=== PATIENT | male | born 1955 | race Hispanic/Latino ===

== ENCOUNTER 2018-06-23 11:16 | Outpatient (CLI) | payer MEDICARE, MEDICAID ==
[2018-06-23 12:32] LABS: Hemoglobin A1c 7.3 % (4.0-6.0)
--- NOTE | 2018-06-23 13:47 | RAD ---
RADIOGRAPH CHEST 2 VIEWS: Date: 06-23-18 Time: 11:56 a.m. HISTORY: 63-year-old male with dyspnea and asbestos exposure. COMPARISON: 12-19-14 FINDINGS: Transverse diameter of the cardiac size is at the upper limits of normal on the frontal view. Evidenc e of previous CABG. Chronically widened mediastinum. Diffusely prominent interstitial markings, chron ic. No pleural effusion, consolidation, pulmonary edema, or pneumothorax. Other than right glenohumer al joint replacement hardware, there has been no significant interval change since the prior study. N o definitive evidence of calcified pleural plaques. IMPRESSION: 1. Chronic, mildly prominent interstitial markings. 2. Evidence of previous coronary artery bypass graft surgery is evidence for coronary atherosclerotic disease. 3. No acute findings. ARGENIS [] POS: JESS
== END 2018-06-23 11:17 | disposition home or self-care (01) ==
LOC: RAD 11:16
PROVIDERS: ATTEND Family Medicine
DX: R06.02 Shortness of breath (principal); E11.65 Type 2 diabetes mellitus with hyperglycemia; I25.10 Atherosclerotic heart disease of native coronary artery without angina pectoris; R91.8 Other nonspecific abnormal finding of lung field; Z95.1 Presence of aortocoronary bypass graft
CPT/HCPCS: 71046; 83036

== ENCOUNTER 2018-07-21 13:06 | Outpatient (CLI) | payer MEDICARE, MEDICAID ==
[2018-07-21 14:56] LABS: #Basophils 0.1 thou/uL (0.0-0.2); #Eosinphils 0.2 thou/uL (0.0-0.7); #Lymphocytes 1.8 thou/uL (1.20-3.40); #Monocytes 0.7 thou/uL (0.11-0.59); #Neutrophils 4.1 thou/uL (1.40-6.50); %Basophils 0.7 % (0.0-1.0); %Eosinophils 2.9 % (0.0-10.0); %Lymphocytes 26.7 % (21.0-51.0); %Monocytes 9.6 % (0.0-10.0); %Neutrophils 60.1 % (42.0-75.0); Hemoglobin 8.9 g/dL (14.0-18.0); Mean Corpuscular HGB CONC 30.7 g/dL (32.0-36.0); Mean Corpuscular Hemoglobin 25.2 pg (27.0-31.0); Mean Corpuscular Volume 81.9 fL (78.0-98.0); Mean Platelet Volume 8.1 fL (7.4-10.4); Platelet Count 183 thou/uL (130-400); RBC Distribution Width 18.3 % (11.5-14.5); Red Blood Cell (RBC) Count 3.53 mill/uL (4.70-6.10); White Blood Cell (WBC) Count 6.8 thou/uL (4.8-10.8)
[2018-07-21 15:11] LABS: ALT (SGPT) 10 U/L (8-55); AST (SGOT) 20 U/L (5-34); Albumin 4.2 g/dL (3.4-4.8); Alkaline Phosphatase 56 U/L (40-150); Anion Gap 13 mmol/L (10-20); BUN (Urea Nitrogen) 19 mg/dL (8.4-25.7); Bilirubin, Direct 0.2 mg/dL (0.1-0.3); Bilirubin, Total 0.4 mg/dL (0.2-1.2); Calc. Creatinine Clearance 0 mL/min (70-130); Calcium 9.5 mg/dL (7.8-10.44); Carbon Dioxide 29 mmol/L (23-31); Chloride 103 mmol/L (98-107); Estimated GFR-MDRD 54; Globulin 3.2 g/dL (2.4-3.5); Glucose 71 mg/dL (80-115); Potassium 3.4 mmol/L (3.5-5.1); Protein, Total 7.4 g/dL (5.8-8.1); Sodium 142 mmol/L (136-145)
--- NOTE | 2018-07-21 15:17 | RAD ---
CHEST TWO VIEWS: HISTORY: Asbestos exposure. Shortness of breath. COMPARISON: 06/23/2018 FINDINGS: Two views of the chest show a cardiomediastinal silhouette, which is at the upper limits of normal in size. The patient is status post sternotomy. Hardware is seen in the right humerus. Increased int erstitial lung markings are present. No change has occurred compared to the prior examination. IMPRESSION: Stable examination. POS: CARMELA
== END 2018-07-21 13:07 | disposition home or self-care (01) ==
LOC: LABBT 13:06
PROVIDERS: ATTEND Internal Medicine Cardiovascular Disease
DX: Z01.818 Encounter for other preprocedural examination (principal); R93.89 Abnormal findings on diagnostic imaging of other specified body structures
CPT/HCPCS: 71046; 80053; 80076; 85025; 93005; 93010

== ENCOUNTER 2018-07-30 06:02 | Day surgery (SDC) | payer MEDICARE, MEDICAID ==
[2018-07-21 13:35] VITALS: BMI 38.2
[2018-07-30] MEDS ORDERED: Heparin 10,000 UNITS/1 ML VIAL ONE (06:30)
[2018-07-30 06:35] LABS: #Eosinphils 0.3 thou/uL (0.0-0.7); #Lymphocytes 1.6 thou/uL (1.20-3.40); #Monocytes 0.7 thou/uL (0.11-0.59); #Neutrophils 5.3 thou/uL (1.40-6.50); %Basophils 0.6 % (0.0-1.0); %Eosinophils 3.4 % (0.0-10.0); %Lymphocytes 19.6 % (21.0-51.0); %Monocytes 9.4 % (0.0-10.0); %Neutrophils 67.2 % (42.0-75.0); Hemoglobin 9.2 g/dL (14.0-18.0); Mean Corpuscular HGB CONC 30.2 g/dL (32.0-36.0); Mean Corpuscular Hemoglobin 24.4 pg (27.0-31.0); Mean Corpuscular Volume 80.7 fL (78.0-98.0); Mean Platelet Volume 8.1 fL (7.4-10.4); Platelet Count 264 thou/uL (130-400); RBC Distribution Width 17.1 % (11.5-14.5); Red Blood Cell (RBC) Count 3.76 mill/uL (4.70-6.10); White Blood Cell (WBC) Count 7.9 thou/uL (4.8-10.8)
[2018-07-30 07:03] LABS: ALT (SGPT) 12 U/L (8-55); AST (SGOT) 23 U/L (5-34); Albumin 4.1 g/dL (3.4-4.8); Alkaline Phosphatase 59 U/L (40-150); Anion Gap 14 mmol/L (10-20); BUN (Urea Nitrogen) 23 mg/dL (8.4-25.7); Bilirubin, Total 0.5 mg/dL (0.2-1.2); Calc. Creatinine Clearance 92 mL/min (70-130); Calcium 9.5 mg/dL (7.8-10.44); Carbon Dioxide 26 mmol/L (23-31); Cardiac Risk 3.6 (Less than 4.5); Chloride 103 mmol/L (98-107); Cholesterol 135 mg/dl (< 200 Desired); Estimated GFR-MDRD 55; Globulin 3.7 g/dL (2.4-3.5); Glucose 154 mg/dL (80-115); HDL Cholesterol 37 mg/dL (>60 Neg Risk); LDL Cholesterol, Calculated 65 mg/dL; Potassium 3.9 mmol/L (3.5-5.1); Protein, Total 7.8 g/dL (5.8-8.1); Sodium 139 mmol/L (136-145); Triglycerides 163 mg/dL (Less than 150)
[2018-07-30] MEDS ORDERED: Midazolam HCl 2 mg/2 ml Vial ONE (07:30)
[2018-07-30] MEDS ORDERED: Fentanyl 100 MCG/2 ML VIAL ONE (07:30)
[2018-07-30] MEDS ORDERED: Iopamidol 370 76% 100 ML VIAL ONE (07:42)
[2018-07-30] MEDS ORDERED: Iopamidol 370 76% 50 ML VIAL FS ONE (07:42)
[2018-07-30] MEDS ORDERED: Protamine Sulfate 50 MG/5 ML VIAL ONE (08:24)
== END 2018-07-30 16:08 | disposition home or self-care (01) ==
LOC: CCL 06:02
PROVIDERS: ATTEND Internal Medicine Cardiovascular Disease
PROC: 4A023N7 Measurement of Cardiac Sampling and Pressure, Left Heart, Percutaneous Approach (ICD-10-PCS; principal; 2018-07-30)
PROC: B2111ZZ Fluoroscopy of Multiple Coronary Arteries using Low Osmolar Contrast (ICD-10-PCS; 2018-07-30)
PROC: B2181ZZ Fluoroscopy of Left Internal Mammary Bypass Graft using Low Osmolar Contrast (ICD-10-PCS; 2018-07-30)
PROC: B2131ZZ Fluoroscopy of Multiple Coronary Artery Bypass Grafts using Low Osmolar Contrast (ICD-10-PCS; 2018-07-30)
DX: I25.810 Atherosclerosis of coronary artery bypass graft(s) without angina pectoris (principal); I25.82 Chronic total occlusion of coronary artery; Z95.1 Presence of aortocoronary bypass graft; Z88.5 Allergy status to narcotic agent; Z88.8 Allergy status to other drugs, medicaments and biological substances; Z79.4 Long term (current) use of insulin; Z79.02 Long term (current) use of antithrombotics/antiplatelets; Z79.899 Other long term (current) drug therapy; Z95.5 Presence of coronary angioplasty implant and graft
CPT/HCPCS: 36416; 80053; 80061; 85025; 85347; 93459; 99152; 99153; C1769; J1644; J2250; J2720; J3010; Q9967

== ENCOUNTER 2018-08-20 08:40 | Inpatient (IN) | payer MEDICARE, MEDICAID ==
[2018-08-20 09:25] LABS: #Eosinphils 0.1 thou/uL (0.0-0.7); #Lymphocytes 1.2 thou/uL (1.20-3.40); #Monocytes 0.7 thou/uL (0.11-0.59); %Eosinophils 1.4 % (0.0-10.0); %Lymphocytes 11.5 % (21.0-51.0); %Monocytes 7.3 % (0.0-10.0); %Neutrophils 79.9 % (42.0-75.0); Hemoglobin 8.2 g/dL (14.0-18.0); Mean Corpuscular HGB CONC 28.5 g/dL (32.0-36.0); Mean Corpuscular Hemoglobin 23.9 pg (27.0-31.0); Mean Platelet Volume 7.9 fL (7.4-10.4); Platelet Count 240 thou/uL (130-400); RBC Distribution Width 18.3 % (11.5-14.5); Red Blood Cell (RBC) Count 3.41 mill/uL (4.70-6.10)
--- NOTE | 2018-08-20 09:39 | RAD ---
CHEST 1 VIEW: Date: 08/20/18 HISTORY: Dyspnea. COMPARISON: Radiograph dated 07/21/18. FINDINGS: Heart size is enlarged. Moderate edema. Large right and moderate left pleural effusion. No pneumothor ax. IMPRESSION: Findings suggestive of congestive heart failure. POS: [facility]
[2018-08-20 09:41] LABS: Band 5 % (5-11); Eosinophils 2 % (0-10); Hypochromia SLIGHT = 6-15 cells (100X) (0-5/hpf); Lymphocytes 10 % (21-51); MDiff Complete? YES; Monocytes 7 % (0-10); Neutrophil 76 % (42-75); Nucleated RBC 1 % (0); Platelet Morphology Comment Appears Adequate; Polychromasia MODERATE = 3-4 cells (100X) (0-2/hpf)
[2018-08-20 09:45] LABS: ALT (SGPT) 11 U/L (8-55); AST (SGOT) 23 U/L (5-34); Albumin 3.7 g/dL (3.4-4.8); Alkaline Phosphatase 69 U/L (40-150); Anion Gap 14 mmol/L (10-20); BUN (Urea Nitrogen) 16 mg/dL (8.4-25.7); Bilirubin, Total 0.5 mg/dL (0.2-1.2); Calc. Creatinine Clearance 0 mL/min (70-130); Carbon Dioxide 25 mmol/L (23-31); Chloride 106 mmol/L (98-107); Estimated GFR-MDRD 56; Globulin 3.6 g/dL (2.4-3.5); Glucose 91 mg/dL (80-115); Protein, Total 7.3 g/dL (5.8-8.1); Sodium 141 mmol/L (136-145)
[2018-08-20] MEDS ORDERED: Iopamidol 370 76% 100 ML VIAL ONE (09:47)
[2018-08-20 10:07] LABS: CKMB 2.6 ng/mL (0-6.6)
[2018-08-20] MEDS ORDERED: Furosemide 40 MG/4 ML VIAL ONE (10:20)
--- NOTE | 2018-08-20 10:53 | CT ---
CT PULMONARY ANGIOGRAM WITH IV CONTRAST AND 3D POSTPROCESSING: Date: 08/20/18 HISTORY: Shortness of breath. FINDINGS: There is good contrast opacification of the pulmonary arterial vasculature without filling defects to suggest pulmonary embolism. There are vascular calcifications without evidence of aneurysmal dilatation of the thoracic aorta. No pericardial effusion is seen. There are small bilateral pleural effusions, right larger than left. T here are scattered patchy ground-glass infiltrates in the lung parenchyma bilaterally, right greater than left. No pneumothoraces are seen. There is mediastinal lymphadenopathy. Degenerative changes are present in the spine. IMPRESSION: 1. No CT evidence of pulmonary embolism. 2. Mediastinal lymphadenopathy. 3. Bilateral small pleural effusions, right greater than left. 4. Ground-glass infiltrates. Further evaluation with bronchoscopy would be helpful. POS: [facility]
[2018-08-20] MEDS ORDERED: Enoxaparin Sodium 100 MG/ML SYRINGE ONE (10:58)
[2018-08-20] MEDS ORDERED: Loperamide HCl 2 MG CAP PO PRN (12:26)
[2018-08-20] MEDS ORDERED: Nitroglycerin 0.4 MG TAB (25 Tab Bottle) SL PRN (12:26)
[2018-08-20] MEDS ORDERED: diphenhydrAMINE 25 MG in Sodium Chloride 0.9% 50 ML IVPB PRN (12:29)
[2018-08-20] MEDS ORDERED: TICAGRELOR 90 MG TABLET PO SCH (12:30)
[2018-08-20] MEDS ORDERED: cefTRIAXone\\ROCEPHIN 1 GM in Sodium Chloride 0.9% 100 ML IVPB SCH (13:00)
[2018-08-20 13:03] LABS: Troponin I 0.169 ng/mL (< 0.028)
[2018-08-20] MEDS ORDERED: Azithromycin 500 MG in Sodium Chloride 0.9% 250 ML 250 ML IVPB SCH (14:00)
[2018-08-20] MEDS ORDERED: methylPREDNISolone Sod Succ/PF 125 MG/2 ML VIAL IVP SCH (14:00)
[2018-08-20] MEDS ORDERED: DOBUTamine 500 mg/250 ml 250 ML IVPB SCH (15:30)
[2018-08-20 15:59] LABS: Troponin I 0.158 ng/mL (< 0.028)
[2018-08-20] MEDS ORDERED: Acetaminophen 325 MG TAB PO PRN (16:19)
[2018-08-20] MEDS ORDERED: Ondansetron PF 4 MG/2 ML Vial IVP PRN (16:19)
[2018-08-20] MEDS ORDERED: Ondansetron ODT 4 MG TAB SL PRN (16:19)
[2018-08-20 16:35] VITALS: BMI 38.1
--- NOTE | 2018-08-20 18:57 | CON ---
DATE OF CONSULTATION: 08/20/2018 REASON FOR CONSULT: Respiratory failure. HISTORY OF PRESENT ILLNESS: The patient is a 63-year-old male with past medical history significant for horrendous coronary artery disease. He had a coronary artery bypass graft several years ago. Recently, he was having intermittent chest discomfort. He got re-cath. Three of his four grafts were down by his history. For the last week and a half, he has had increasing dyspnea that limits his activity, and for the last 4 or 5 days, he has had increasing orthopnea and paroxysmal nocturnal dyspnea. This is despite the fact that he is on CPAP therapy. He has not had any fevers. He did have a little bit of chills. He has not been coughing up any sputum with color. For last 2 or 3 days, he was bringing up frothy sputum. Then yesterday, he was brought up something that he describes as having a pinky to it. Today, it is converted over into a fuller to brown color, consistent with evolution of alveolar hemorrhages. He did have some chest pains 3 or 4 days ago. He also notes increasing lower extremity swelling and weight gain as well as abdominal swelling. He got a dose of Lasix. He put a liter fluid out. Blood pressures remain fantastic. PAST MEDICAL HISTORY: 1. Coronary artery disease. 2. Type 2 diabetes mellitus. 3. Hypertension. 4. Dyslipidemia. 5. Obstructive sleep apnea, on CPAP at 13 cm water pressure. 6. Morbid obesity. 7. Gastroesophageal reflux disease. 8. Gastroparesis. 9. Restless legs syndrome. 10. History of TIA. PAST SURGICAL HISTORY: 1. Percutaneous coronary intervention x3. 2. Coronary artery bypass graft x5 vessels. 3. Right hip surgery. 4. Bilateral total knee arthroplasty. SOCIAL HISTORY: Negative for current alcohol, tobacco, or illicit drug use. A 15- to [id number] history of smoking, but quit over 20 years ago. He has no exposure to chemicals, dust, asbestos, or tuberculosis. FAMILY HISTORY: Noncontributory. ALLERGIES: NITROGLYCERIN, MORPHINE, LEVAQUIN. MEDICATIONS: List of the patient's inpatient medications was reviewed. Multiple updates were made. REVIEW OF SYSTEMS: General, head, ears, eyes, nose, throat, cardiovascular, respiratory, GI, , musculoskeletal, neurologic, and skin are negative as mentioned in the HPI. PHYSICAL EXAMINATION: VITAL SIGNS: Afebrile, pulse 95, blood pressure 118/72, respirations 15, saturation 93% on 4 L nasal cannula. GENERAL: The patient is awake and alert. He is dyspneic. He is grunting while breathing. HEENT: Normocephalic and atraumatic. Sclerae are white. Conjunctivae are pink. Oral and nasal mucosa is moist without lesions. LUNGS: Excellent air entry. There is no prolonged expiratory phase. Extensive crackling is present throughout bilateral lung reynaga. There is no prolonged expiratory phase or wheezing present. HEART: Normal rate. Regular. ABDOMEN: Soft, nontender, nondistended. Bowel sounds are positive. MUSCULOSKELETAL: No cyanosis or clubbing. There is 1+ to 2+ pitting in the bilateral lower extremities. NEUROLOGIC: Grossly nonfocal. LABORATORY DATA: WBC 10.0 with a near normal differential. Hemoglobin 8.2, which is a little low for him, MCV 84, platelet 240,000. Band count is low. Basic metabolic profile and liver function studies are otherwise unremarkable. Creatinine just over baseline at 1.29. BNP is in historic high at 833. Troponins were recently uptrending, but are now heading back downward. IMAGING DATA: Chest x-ray demonstrates findings consistent with asymmetric pulmonary edema, bilateral pleural effusions, and cephalization all consistent with severe volume overload. CTA of the chest demonstrates ground-glass opacifications throughout bilateral lung reynaga and thickened interstitium. It is more predominantly displayed on the right compared to the left. He also has mediastinal lymphadenopathy, bilateral pleural effusions. All of these things are in keeping with severe volume overload, though additional investigation may be warranted if he does not respond to conservative therapy. ASSESSMENT: 1. Acute hypoxic respiratory failure. 2. Acute heart failure, type not specified presently. 3. Chronic kidney disease, stage 2. 4. Obstructive sleep apnea, on home CPAP at 14 cm H2O 70 minutes have been devoted to this patient in various activities. I personally reviewed all imaging studies and laboratory data noted within this document. For fifty percent of this time, I was interacting with the patient at the bedside or coordinating care with the care team. For the remainder of the time I was immediately available to the patient in the hospital unit. Job ID: [id number] [facility]
[2018-08-20] MEDS ORDERED: Furosemide 40 MG/4 ML VIAL SLOW IVP SCH (20:00)
[2018-08-20] MEDS: Atorvastatin Calcium 40 MG TAB PO SCH (21:20)
[2018-08-20] MEDS: Enoxaparin Sodium 80 MG/0.8 ML SYRINGE SC SCH (21:20)
[2018-08-20] MEDS: Famotidine 20 MG TAB PO SCH (21:20)
[2018-08-20 22:50] LABS: Troponin I 0.142 ng/mL (< 0.028)
[2018-08-21 05:41] LABS: #Eosinphils 0.2 thou/uL (0.0-0.7); #Lymphocytes 1.3 thou/uL (1.20-3.40); #Monocytes 0.7 thou/uL (0.11-0.59); #Neutrophils 6.7 thou/uL (1.40-6.50); %Basophils 0.1 % (0.0-1.0); %Eosinophils 1.8 % (0.0-10.0); %Lymphocytes 14.2 % (21.0-51.0); %Monocytes 7.8 % (0.0-10.0); %Neutrophils 76.1 % (42.0-75.0); Hemoglobin 8.1 g/dL (14.0-18.0); Mean Corpuscular HGB CONC 28.2 g/dL (32.0-36.0); Mean Corpuscular Hemoglobin 23.5 pg (27.0-31.0); Mean Corpuscular Volume 83.3 fL (78.0-98.0); Platelet Count 259 thou/uL (130-400); Red Blood Cell (RBC) Count 3.43 mill/uL (4.70-6.10); White Blood Cell (WBC) Count 8.8 thou/uL (4.8-10.8)
[2018-08-21 05:49] LABS: Anion Gap 15 mmol/L (10-20); BUN (Urea Nitrogen) 17 mg/dL (8.4-25.7); Calc. Creatinine Clearance 102 mL/min (70-130); Calcium 8.7 mg/dL (7.8-10.44); Carbon Dioxide 24 mmol/L (23-31); Chloride 105 mmol/L (98-107); Estimated GFR-MDRD 62; Glucose 182 mg/dL (80-115); Iron 18 ug/dL (65-175); Iron Binding Capacity, Total 470 mcg/dL (261-462); Potassium 3.8 mmol/L (3.5-5.1); Sodium 140 mmol/L (136-145)
[2018-08-21 05:51] LABS: Iron 16 ug/dL (65-175); Iron Binding Capacity, Total 469 mcg/dL (261-462)
[2018-08-21] MEDS ORDERED: Furosemide 40 MG/4 ML VIAL SLOW IVP SCH (06:00)
--- NOTE | 2018-08-21 07:56 | PDOC.EVN ---
Event Note - Event Note Event Note: H&P DICTATED [id number] Dictated 1 day late as not possible to be done day of admission
--- NOTE | 2018-08-21 08:23 | RAD ---
AP VIEW CHEST: HISTORY: Shortness of breath. FINDINGS: AP view chest is obtained on 08/21/2018. Comparison is made to previous exam from 08/20/2018. AP view chest demonstrates a reverse right shoulder arthroplasty. Cardiomegaly is seen. Pulmonary vascular congestion is seen. Airspace opacity is seen in both lungs more prominent on the right than on the left. A right-sided pleural effusion is seen. IMPRESSION: Cardiomegaly, pulmonary vascular congestion, and airspace opacities worse on the right than on the le ft. There is also a right-sided pleural effusion. Radiographic appearance of the chest is stable. POS: CARMELA
[2018-08-21] MEDS ORDERED: TICAGRELOR 90 MG TABLET PO SCH (09:00)
[2018-08-21] MEDS ORDERED: methylPREDNISolone Sod Succ 40 MG VIAL IVP SCH (09:00)
[2018-08-21] MEDS: Enoxaparin Sodium 80 MG/0.8 ML SYRINGE SC SCH (09:35)
[2018-08-21] MEDS: Aspirin 81 mg Enteric Coated Tablet PO SCH (09:35)
[2018-08-21] MEDS: Famotidine 20 MG TAB PO SCH ×2 (09:35→21:34)
[2018-08-21] MEDS: HYDROcodone/Acetaminophen 5/325 mg Tablet PO PRN (09:38)
--- NOTE | 2018-08-21 09:50 | HP ---
CHIEF COMPLAINT: Shortness of breath and chest pain. HISTORY OF PRESENT ILLNESS: This is a 63-year-old male with a pretty significant past medical history of coronary artery disease, having had surgeries done at [facility] as well as [facility]. The patient states that he was having some worsening shortness of breath and chest pain, came to the ER because of this and that he has never felt this sort of pain before. The patient states that he does have dyspnea on exertion as well as some lower extremity swelling and worsening of his shortness of breath. The patient states that he otherwise takes all of his medications as directed, had seen a wildlife science professor recently, had a cardiac catheterization done and was found to have apparently blockages in multiple vessels that he had done the bypass on and was told that there was nothing further that could be done surgically for him, that he would need to be managed medically. The patient was seen and examined in the ER. No family at bedside. All questions were answered. REVIEW OF SYSTEMS: All systems were reviewed. Pertinent positives in HPI, otherwise negative. PAST MEDICAL HISTORY: Coronary artery disease, diabetes mellitus type 2, hypertension, sleep apnea, obesity, hyperlipidemia, coronary artery bypass graft and stenting. SOCIAL HISTORY: Quit about 20 years ago, but stated that he smoked a pack a day for about 20 to 25 years. Social drinker. FAMILY HISTORY: Positive for hypertension. ALLERGIES: NITROGLYCERIN, MORPHINE, LEVAQUIN. MEDICATIONS: Please see MAR. PHYSICAL EXAMINATION: VITAL SIGNS: Blood pressure 118/72, respiratory rate of 18, saturations 94% on 3 L nasal cannula, pulse 90. GENERAL: The patient lying in bed, in no acute distress. HEENT: Normocephalic, atraumatic. Pupils equal, round, and reactive to light and accommodation. Oral cavity moist and pink. NECK: Supple, mobile, nontender thyroid. LUNGS: Inspiratory crackles appreciated throughout lung reynaga. Slightly increased AP diameter. Mild respiratory distress. HEART: Borderline sinus tach. Faint murmur appreciated. S1, S2. ABDOMEN: Soft, nontender, nondistended, rotund. EXTREMITIES: 2+ peripheral pulses. 1+ pitting edema noted. NEUROLOGICAL: Cranial nerves 2 through 12 intact. No loss of motor or sensory function. IMAGING DATA: CTA of the chest shows ground-glass infiltrates, no PE, mediastinal lymphadenopathy as well as bilateral small pleural effusions, right greater than left. Chest x-ray shows findings suggestive of congestive heart failure. LABORATORY DATA: CBC shows hemoglobin of 5.2, otherwise normal. Basic metabolic panel shows creatinine of 1.29. Troponin of 0.129. Brain natriuretic peptide of 833. ASSESSMENT: 1. Congestive heart failure decompensation. 2. Anemia. 3. Likely respiratory insufficiency secondary to chronic obstructive pulmonary disease. 4. Hypertension. 5. Diabetes mellitus type 2. 6. Pleural effusion. 7. Mediastinal lymphadenopathy. PLAN: At this point in time, we will admit the patient to the inpatient intermediate unit. Start the patient on aspirin and atorvastatin and we will also start the patient on Brilinta and full-dose Lovenox to treat as an NSTEMI. Consult to Cardiology and Pulmonary team. We will order an echo, chest x-ray as well as lab work for tomorrow morning. We will also obtain iron studies as well to rule out any iron deficiency component for the anemia. The patient wishes to remain a full code. Case and plan were discussed with the patient at length. He understood and agreed with this plan. Job ID: [id number]
--- NOTE | 2018-08-21 10:54 | CON ---
DATE OF CONSULTATION: ASSESSMENT: 1. Acute hypoxic respiratory failure. 2. Acute heart failure, type not currently known. 3. Mediastinal lymphadenopathy, likely secondary to volume overload. 4. Bilateral pleural effusions and pulmonary infiltrates, characterized by ground-glass opacifications, interstitial fullness (asymmetric). 5. Mitral regurgitation, likely. 6. Obstructive sleep apnea, on CPAP at 13 cm of water pressure. DISCUSSION AND PLAN: My suspicion is that all the findings that we have here associated with his volume overload state. Other than tachypnea, he has no real overt features consistent with sepsis. He is not tachycardic and does not have a white blood cell count or fever. If he has additional signs of sepsis, panculture and empiric antibiotics can be considered, but at this time, my suspicion is that all these findings are associated with his volume overload state. He has already gotten a dose of Lasix and put over a liter of fluid out with it. We will continue to diurese him through time. Because of the way he is tachypneic, and he is grunting, I do think that he needs to be monitored very closely for a brief period time in the IMCU. If his blood pressure is fall off, dobutamine could be considered. Cardiology consultation has been placed, which I agree with. Hopefully, we will be able to optimize heart function through time. Pulmonary Critical Care will continue to follow. He has known sleep apnea. We will continue his CPAP at 13 cm of water pressure while he remains inhouse. Job ID: [id number]
--- NOTE | 2018-08-21 11:29 | PRG ---
DATE OF SERVICE: 08/21/2018 SERVICE: Pulmonary Medicine. INTERVAL HISTORY: The patient is doing fine from a respiratory standpoint. Breathing comfortably. Denies any current chest pain, fevers, or chills. He had a better night last night. That being said, nurses report that he was a little bit short-winded. His recollection is that things were much smoother. He had lot of interruptions in sleep associated with just being in the hospital, but felt that he actually was able to get the first couple of hours of sleep that he has had in quite some time. He denies any fevers. He had a little bit of chills. No sweats. He is still coughing up some frothy sputum. He has some pink tinge to it. PHYSICAL EXAMINATION: VITAL SIGNS: Afebrile, pulse 97, blood pressure 116/46, respirations 12, and saturation 97% on 3 L nasal cannula. GENERAL: The patient is awake and alert, in no apparent distress. LUNGS: Decent air entry. Crackles are still present throughout bilateral lung reynaga. HEART: Normal rate, regular. ABDOMEN: Soft, nontender, and nondistended. Bowel sounds are positive. MUSCULOSKELETAL: No cyanosis or clubbing. The pitting in bilateral lower extremities has actually improved dramatically. LABORATORY DATA: WBC 8.8, hemoglobin 8.1, and platelets 259,000. Creatinine 1.18 and downtrending, potassium 3.8. Iron is low, total iron-binding capacity is quite high. The percent saturation is extremely low with ferritin on the low side of normal. Troponin is 0.142, which is downtrending comfortably. IMAGING DATA: Chest x-ray demonstrates stable appearance of bilateral pleural effusions and pulmonary edema. Right side is worse than the left side. ASSESSMENT: 1. Acute hypoxic respiratory failure. 2. Acute heart failure, type unknown. 3. Abnormal CT, including mediastinal lymphadenopathy, bilateral pleural effusions, and pulmonary infiltrates, characterized by ground-glass opacification and interstitial fullness (crazy paving). 4. Mitral regurgitation, likely. 5. Obstructive sleep apnea, on CPAP 14 cm of water pressure. DISCUSSION AND PLAN: The patient is doing okay from a respiratory standpoint. He will go on and off the CPAP through the day. We will continue to make efforts to diurese him through time. I will check a magnesium tomorrow morning. I will give him a dose of potassium. Pulmonary/Critical Care will continue to follow along. We will give him a fluid restriction of 1.5 L/minute. Echocardiogram is currently pending, but my suspicion is he has fairly significant mitral regurgitation given the asymmetric pattern on chest x-ray. Job ID: [id number] [facility]TDD
[2018-08-21] MEDS ORDERED: Potassium Chloride 20 MEQ TAB PO SCH (12:00)
--- NOTE | 2018-08-21 12:59 | HP ---
CHIEF COMPLAINT: Shortness of breath. HISTORY OF PRESENT ILLNESS: This is a 63-year-old male being seen in the hospital complaining of chest tightness and shortness of breath. States that he has a history of COPD, quit smoking about 16 years ago, however, does have a history of COPD as well as coronary artery disease, had a bypass done at [facility]. He cannot recall when and then he had another surgical intervention in the [facility], cannot recall when, cannot recall his foreclosure paralegal or the surgeon's names. The patient does state that he sees Dr. Valladares [place] for [place] cardiology needs. The patient per surgery at [facility] and at the [facility] was told that there was nothing further that can be done for his coronary artery disease surgically and that he needs to have aggressive medical management and weight loss. The patient does use a CPAP at home. Has had prior COPD exacerbations, but does state that this feels slightly different than any and all of his prior COPD exacerbations in the past. The patient admits to dyspnea on exertion. States that he has some chest discomfort when he is exerting himself, which does go with relief. Denies any other associated symptoms or complaints. No other alleviating factors noted. The patient is seen and examined in the ER. No family at bedside. REVIEW OF SYSTEMS: All systems reviewed, pertinent positives in HPI, otherwise negative. ALLERGIES: TO ISOSORBIDE AND MORPHINE. THE PATIENT, WHEN HE TAKES BOTH MEDICATIONS, BREAKS OUT INTO A RASH, HOWEVER, DOES STATE THAT IF HE TAKES A BENADRYL ALONG WITH THE MEDICATION, HE CAN AVOID THESE REACTIONS. PAST MEDICAL HISTORY: Positive for COPD, hypertension, coronary artery disease, and anemia, as well as heart failure. HOME MEDICATIONS: Please see MAR. FAMILY HISTORY: Positive for heart disease as well as diabetes. PAST SURGICAL HISTORY: Cardiac bypass. SOCIAL HISTORY: Social drinker. Prior smoker, has not smoked since 16 years. PHYSICAL EXAMINATION: VITAL SIGNS: Blood pressure 138/88, heart rate of 88, respiratory rate of 20, O2 saturations 98% on 3 L nasal cannula. GENERAL: The patient lying in bed, appears to be in no discomfort. HEENT: Pupils are equal, round, and reactive to light and accommodation. Oral cavity moist and pink. NECK: Large, but supple, nontender, mobile, thyroid appreciated. CARDIOVASCULAR: Rhythm S1, S2. 2/6 systolic ejection murmur appreciated. No rubbing or gallops appreciated. Sinus rhythm appreciated. LUNGS: Decreased breath sounds in the right lung field. The patient does have some inspiratory crackles and an increased AP diameter. ABDOMEN: Positive bowel sounds. Soft, nontender, rotund, nondistended. EXTREMITIES: 2+ peripheral pulses with 1+ pitting edema in the bilateral lower extremities. NEUROLOGIC: Cranial nerves 2 through 12 intact. Alert and oriented x3. Normal mood and affect noted. LABORATORY DATA: CBC shows hemoglobin of 8.2, otherwise rest of CBC within normal limit and chemistry panel normal except for troponin of 0.13 and a brain natriuretic peptide of 833. CTA of the chest shows no evidence of pulmonary embolism. Mediastinal lymphadenopathy noted. Bilateral small pleural effusions noted, right greater than left. Ground-glass infiltrates also noted. Chest x-ray shows congestive heart failure findings. ASSESSMENT: 1. Shortness of breath. 2. Gfb-[id number]-pcezrzczs myocardial infarction. 3. Hypertension. 4. Coronary artery disease. 5. Chronic obstructive pulmonary disease exacerbation. 6. Hypoxia. 7. Anemia. 8. Hypertension. PLAN: 1. At this point in time, we will place the patient on telemetry. 2. We will start the patient on Rocephin and azithromycin given the x-ray findings. 3. We will also check iron studies for anemia. 4. We will check blood cultures. 5. Consult with Dr. Valladares, who is the patient's foreclosure paralegal on-call so to Pulmonary Team as well given the CTA findings of lymphadenopathy and possible need for bronchoscopy recommended by the radiologist. 6. It is unclear if this patient is having an actual ND versus a COPD exacerbation, considering that he is stating that this feels vastly different from his prior COPD exacerbation. This will treat as if this is an active ND. We will give the patient aspirin, load him with Brilinta. We will also provide the patient with full-dose Lovenox, atorvastatin as well. We will hold off on any beta blockers for now, considering the patient's blood pressure as appropriate. No tachycardia noted and we would not want to worsen any possible bronchospasm that may occur with beta-blockade. 7. We will provide the patient with steroids, Rocephin and azithromycin as mentioned above. We will also provide the patient with oxygen p.r.n. and DuoNeb. 8. Trend troponins. 9. The patient wishes to be a full code. 10. Case and plan discussed with the patient at length. He understood and agreed with this plan. No family at bedside. Job ID: [id number]
[2018-08-21] MEDS: Furosemide 40 MG/4 ML VIAL SLOW IVP SCH (13:01)
--- NOTE | 2018-08-21 13:23 | PDOC.PN ---
- Subjective Encounter Start Date: 08/21/18 Encounter Start Time: 13:22 Patient seen and examined, states his SOB has improved but still is having dyspnea on exhertion. Family at bedside, seen in IMCU, all questions answered. - Objective Vital Signs & Weight: Vital Signs (12 hours) Temp Pulse Ox 08/21/18 10:28 99.4 F 08/21/18 07:40 97 08/21/18 07:25 97.8 F 08/21/18 04:00 98.1 F Weight Weight 251 lb Most Recent Monitor Data Heart Rate from ECG 92 NIBP 116/46 NIBP BP-Mean 69 Respiration from ECG 17 SpO2 93 I&O: 08/20/18 08/21/18 08/22/18 06:59 06:59 06:59 Intake Total 240 Output Total 1700 Balance -1460 Result Diagrams: 08/21/18 05:12 08/21/18 05:12 Additional Labs: Accuchecks 08/21/18 08/20/18 05:41 20:21 POC Glucose 185 H 109 Phys Exam - Physical Examination Constitutional: NAD HEENT: PERRLA, moist MMs, sclera anicteric Neck: no nodes, no JVD, supple +wheezing increased AP diameter, no respiratory distress Cardiovascular: RRR, no significant murmur, no rub Gastrointestinal: soft, non-tender, no distention Musculoskeletal: pulses present, edema present Dx/Plan (1) Shortness of breath Code(s): R06.02 - SHORTNESS OF BREATH Status: Acute (2) Sleep apnea Code(s): G47.30 - SLEEP APNEA, UNSPECIFIED Status: Acute (3) Hypertension Code(s): I10 - ESSENTIAL (PRIMARY) HYPERTENSION Status: Acute (4) Coronary artery disease Code(s): I25.10 - ATHSCL HEART DISEASE OF [place] CORONARY ARTERY W/O ANG PCTRS Status: Acute (5) Congestive heart failure Code(s): I50.9 - HEART FAILURE, UNSPECIFIED Status: Acute - Plan * transfer to telemetry, pt stable for floor * use cpap/NC as needed * cont with diuretics for now * advised to pursue aggressive weight loss, a vegan diet would be the best for this gentlemen given significant coronary artery disease * BP stable * continue current plan of care without changes * labs in AM * case and plan d/w patient at length, famly at bedside, all questions answered.
[2018-08-21] MEDS: HYDROcodone/Acetaminophen 10/325 mg Tablet PO PRN (14:50)
--- NOTE | 2018-08-21 15:00 | EKG ---
Test Reason : CHEST PAIN Blood Pressure : / mmHG Vent. Rate : 100 BPM Atrial Rate : 100 BPM P-R Int : 182 ms QRS Dur : 162 ms QT Int : 404 ms P-R-T Axes : 012 099 -30 degrees QTc Int : 521 ms Sinus rhythm with occasional Premature ectopic complexes Possible Left atrial enlargement Right bundle branch block Inferior infarct , age undetermined cannot be excluded Abnormal ECG Confirmed by JACOB ANDERSON ([id number]) on 08/21/2018 3:00:04 PM Referred By: ARIAS Confirmed By:JACOB ANDERSON
--- NOTE | 2018-08-21 18:18 | CON ---
DATE OF CONSULTATION: HISTORY: Wayne Roberts is a 63-year-old male, followed for many years. In 1998, he had myocardial infarction, underwent CABG x5 at [facility]. This was LOVE to the LAD, saphenous vein graft to the diagonal-right posterior lateral 2 and saphenous vein graft to the right posterior descending, sequentially then to the right posterior lateral 1. Two months after surgery, he resumes smoking. In December 2001, he was admitted with chest discomfort, underwent cardiac catheterization, which revealed severe proximal left main stenosis, total occlusion of the LAD proximally, total occlusion of the circumflex proximally and 90% mid RCA with diffuse disease. Bypass grafts revealed patent LOVE to the LAD with diffuse disease distal in the LAD. The diagonal graft was patent, but continuation to the right posterolateral 2 was occluded. Right coronary graft was patent with some distal disease. It was felt that it should be treated medically. He also underwent electrophysiology study at that time due to lightheadedness and dizziness and had normal EP study without inducible arrhythmias. In May 2004, he was again admitted with chest pain, continued to smoke, and had not started his statin medication. He underwent adenosine Cardiolite testing, which revealed no ischemia. There was slight global hypokinesis, particularly in the septal region. He apparently was then followed by lead generation marketing manager at [facility] in [place]. In May 2008, he underwent placement of a Taxus stent and the vein graft to the obtuse marginal (probably to diagonal graft). Also, in September 2008, he had placement of PROMUS 4.0 x 20 mm stent in the graft to the right coronary artery. On the drawing, it looked like there were 4 grafts, but on catheterization here, it stated that they were only 3 grafts. However, the patient states he had 5 bypasses placed. Prior to stent placement, his symptoms were exertional dyspnea and not really chest discomfort. In August 2009, he was admitted with chest discomfort. He underwent EGD by Dr. Britton 2 months prior to that admission, which was normal. CT of the abdomen was done and it certainly revealed infraperitoneal fatty mass in the right anterolateral abdomen as well as fatty liver. He was admitted in August 2009 with central chest pressure, that would occur when he was only supine in bed, never when he was up walking. He denied any dyspnea on exertion, which was his usual anginal symptoms. He had some tenderness in right upper quadrant, which would last 5 to 10 minutes and at times up to 30 minutes. Cardiac enzymes were unremarkable with normal MB, but troponin I was in the low indeterminate range. Echo revealed ejection fraction of 40% to 45%. There is moderate mitral regurgitation, mild tricuspid regurgitation, and mild pulmonic insufficiency. He underwent adenosine Cardiolite testing, which revealed a large inferior wall defect with some ginette-infarction ischemia with ejection fraction of 38%. There was concern that he may have developed in-stent restenosis from the stent that had been placed in the right coronary artery graft. Old records were obtained. It was found that indeed he had CABG x5 in [facility] with LOVE to the LAD, sequential right posterior descending-right posterolateral and another sequential from the first diagonal to the second right posterolateral. He then underwent catheterization here in August 2009, which revealed moderate anterior and severe inferobasal hypokinesis with ejection fraction of 35% to 40%. The left main was totally occluded. The right coronary artery had 50% proximal followed by 80% mid stenosis and was totally occluded. Bypass grafts revealed patent LOVE to the LAD. The diagonal grafts were patent with continued good stent results. The sequential portion to the second posterolateral was occluded. The graft to the right posterior descending and then sequentially to the right posterolateral 1 had a 60% followed by 90% in-stent restenosis. He underwent PTCA of the in-stent restenosis followed by placement of VeriFLEX 4.5 x 28 mm stent. This post dilated with 5 mm balloon. With inflation, he had chest pain like he had been having for 2 weeks. He was placed on carvedilol, lisinopril, and furosemide for his left ventricular dysfunction. In October 2009, his breathing improved after undergoing stent placement. He recently undergone evaluation in the office for increased dyspnea. He had undergone lower extremity arterial intervention by Dr. Rashid, and he can walk further without leg pain, but now is getting short of breath. A cardiac PET scan revealed distal inferior and proximal to mid septal ischemia with moderate global hypokinesis. He then underwent catheterization on July 30, 2018. This revealed severe inferior and moderate anterior hypokinesis with ejection fraction of 35% to 40%. The left main was totally occluded. The right coronary artery had a 90 followed by 80 mid stenosis and that was totally occluded in its midportion. The distal vessel was seen to fill retrograde from the diagonal graft. Bypass grafts revealed patent LOVE to the LAD with diffuse disease distal to the graft insertion. The diagonal graft continued to show good results with the stent in the graft. The sequential portion that went to the right posterolateral 2 was occluded. It was also found that the right coronary artery graft that went to the right PDA and then sequentially to the right posterolateral was totally occluded. It was felt best to treat him medically. His arteries were diffusely diseased. He now is admitted with increased shortness of breath, episodes of PND and orthopnea. At times, when he is supine in bed and short of breath, he will have some chest pressure. PAST MEDICAL HISTORY: Hypertension, diabetes, hyperlipidemia, sleep apnea, obesity, and coronary artery disease. PAST SURGICAL HISTORY: CABG in 1998, left femur ORIF x2, right knee total replacement, right hip total replacement, and removal of soft tissue and intraperitoneal tumor of the abdomen. MEDICATIONS: 1. Aspirin 81 daily. 2. Atorvastatin 40 daily. 3. Carvedilol 12.5 mg b.i.d. 4. Plavix 75 daily. 5. Flexeril p.r.n. 6. Fenofibrate daily. 7. Ferrous sulfate 325 mg b.i.d. 8. Furosemide, unknown dose, 2 in the morning and 1 in the evening. 9. Hydrochlorothiazide 1 daily. 10. Lisinopril 40 mg daily. 11. Metformin b.i.d. 12. Pantoprazole 40 daily. 13. Potassium b.i.d. 14. Ranexa 1000 mg b.i.d. 15. Sertraline 2 tablets q.a.m. ALLERGIES: ISOSORBIDE AND MORPHINE. SOCIAL HISTORY: He smoked until the yearly . He has not had anything to drink for many years. REVIEW OF SYSTEMS: A 10-point review of systems is otherwise unremarkable. PHYSICAL EXAMINATION: VITAL SIGNS: Blood pressure 116/46 and pulse 70. HEENT: PERRL. NECK: Supple. CHEST: Clear except for crackles at the bases. CARDIOVASCULAR: S1 and S2 normal without any S3 or S4. There is a 1/6 systolic murmur in the aortic area. ABDOMEN: Normal bowel sounds without tenderness or organomegaly. EXTREMITIES: No clubbing, cyanosis or edema. NEUROLOGIC: Grossly intact. SKIN: Warm and dry. LABORATORY DATA: EKG reveals normal sinus rhythm with right bundle-branch block, inferior infarction. Hemoglobin 8.1, hematocrit 28.6, and white count 8800. Sodium 140, potassium 3.8, chloride 105, carbon dioxide 24, BUN 17, and creatinine 1.18. TIBC 470 and iron 18. Troponin I 0.169. Chest x-ray revealed bilateral increased interstitial markings consistent with heart failure, pulmonary edema, although the right side is much more adversely affected. There is cardiomegaly. Chest CTA revealed no evidence of pulmonary embolism. There are bilateral small pleural effusions and ground-glass infiltrates. IMPRESSION: 1. Acute on chronic congestive heart failure. Last ejection fraction was 35% to 40% at catheterization 1 month ago. 2. Probable iron-deficiency anemia, which appears to have developed over the last 2 months. 3. Status post coronary artery bypass graft x5 with multiple stent procedures. At the present time, he only has 2 bypass grafts patent. He has diffuse disease and is not a redo coronary artery bypass graft candidate with his current anatomy. 4. Diabetes. 5. Hypertension. 6. Hyperlipidemia. 7. Positive family history. 8. Former smoker. 9. Obstructive sleep apnea. PLAN: The patient will be continued on his usual medications including diuretics, which had been started IV and Ranexa. I will discontinue full anticoagulation due to his iron-deficiency anemia. He should undergo GI evaluation. He will continue to be diuresed. He has not had any recent stent placement, and I would discontinue the Brilinta with probable gastrointestinal bleeding. Job ID: [id number]
[2018-08-21] MEDS: Gabapentin 300 MG CAP PO SCH (21:34)
[2018-08-21] MEDS: Atorvastatin Calcium 40 MG TAB PO SCH (21:34)
[2018-08-21] MEDS: Zolpidem Tartrate 5 MG TAB PO PRN (22:32)
[2018-08-22] MEDS: HYDROcodone/Acetaminophen 10/325 mg Tablet PO PRN ×3 (04:09→21:14)
[2018-08-22] MEDS: Furosemide 40 MG/4 ML VIAL SLOW IVP SCH ×2 (06:32→14:56)
[2018-08-22] MEDS: Enoxaparin Sodium 40 MG/0.4 ML SYRINGE SC SCH (08:29)
[2018-08-22] MEDS: Aspirin 81 mg Enteric Coated Tablet PO SCH (08:29)
[2018-08-22] MEDS: Famotidine 20 MG TAB PO SCH ×2 (08:29→21:13)
[2018-08-22] MEDS: predniSONE 20 MG TAB PO SCH (08:30)
[2018-08-22] MEDS: Gabapentin 300 MG CAP PO SCH ×2 (08:30→21:13)
--- NOTE | 2018-08-22 08:40 | PDOC.CTH ---
Cardiology Progress Note - Objective Vital Signs Temp Pulse Resp Pulse Ox 08/22/18 07:04 97.3 F L 08/22/18 04:28 97.3 F L 08/22/18 00:12 98.6 F 08/21/18 21:52 90 14 98 Weight 251 lb 08/21/18 08/22/18 08/23/18 06:59 06:59 07:59 Intake Total 840 Output Total 3050 Balance -2210 - Labs Result Diagrams: 08/21/18 05:12 08/21/18 05:12 Troponin/CKMB CK-MB (CK-2) 2.6 ng/mL (0-6.6) 08/20/18 09:06 Troponin I 0.142 ng/mL (< 0.028) H 08/20/18 22:03 - Assessment/Plan CHF CAD S/p CABG Tobacco abuse
--- NOTE | 2018-08-22 11:08 | PRG ---
DATE OF SERVICE: 08/22/2018 SUBJECTIVE: Wayne Roberts is morbidly obese gentleman. This morning, he denies any pain or discomfort. OBJECTIVE: VITAL SIGNS: His sats are 92% on 2 L, temperature 97, pulse 88, blood pressure CHEST: Decreased breath sounds. No wheezing. CARDIAC: Normal S1 and S2. No gallops. ABDOMEN: No masses. IMPRESSION: 1. Morbid obesity. 2. Obstructive sleep apnea. 3. Respiratory failure. 4. Congestive heart failure. 5. Continue cardiac care. We will follow while in the MICU. Job ID: [id number]
[2018-08-22] MEDS: HYDROcodone/Acetaminophen 5/325 mg Tablet PO PRN (14:58)
--- NOTE | 2018-08-22 17:05 | PDOC.PN ---
- Subjective Encounter Start Date: 08/22/18 Encounter Start Time: 17:04 Subjective: Seen and examined c/o indigestion but responded to antacid - Objective Vital Signs & Weight: Vital Signs (12 hours) Temp Pulse Resp BP Pulse Ox 08/22/18 16:52 97.8 F 98 18 119/71 96 08/22/18 11:10 93 L 08/22/18 11:06 85 14 92 L 08/22/18 11:00 97.8 F 94 20 136/61 93 L 08/22/18 08:58 93 L 08/22/18 07:04 97.3 F L Weight Weight 251 lb Most Recent Monitor Data Heart Rate from ECG 87 NIBP 133/59 NIBP BP-Mean 83 Respiration from ECG 19 SpO2 91 I&O: 08/21/18 08/22/18 08/23/18 06:59 06:59 07:59 Intake Total 840 Output Total 3050 Balance -2210 Result Diagrams: 08/21/18 05:12 08/21/18 05:12 Additional Labs: Accuchecks 08/22/18 08/22/18 10:33 06:13 POC Glucose 388 H 282 H Phys Exam - Physical Examination Constitutional: NAD HEENT: PERRLA, moist MMs, sclera anicteric, TM's clear Neck: no nodes, no JVD, supple, full ROM Respiratory: no wheezing, no rales, no rhonchi, clear to auscultation bilateral Cardiovascular: RRR, no significant murmur, no rub Gastrointestinal: soft, non-tender, no distention, positive bowel sounds Musculoskeletal: no edema, pulses present Dx/Plan (1) Diabetes 1.5, managed as type 2 Code(s): E13.9 - OTHER SPECIFIED DIABETES MELLITUS WITHOUT COMPLICATIONS Status: Acute (2) Dyspepsia Code(s): R10.13 - EPIGASTRIC PAIN Status: Acute (3) Congestive heart failure Code(s): I50.9 - HEART FAILURE, UNSPECIFIED Status: Acute (4) Coronary artery disease Code(s): I25.10 - ATHSCL HEART DISEASE OF [place] CORONARY ARTERY W/O ANG PCTRS Status: Acute (5) Hypertension Code(s): I10 - ESSENTIAL (PRIMARY) HYPERTENSION Status: Acute (6) Shortness of breath Code(s): R06.02 - SHORTNESS OF BREATH Status: Acute (7) Sleep apnea Code(s): G47.30 - SLEEP APNEA, UNSPECIFIED Status: Acute - Plan plan discussed w/ family, respiratory therapy Resume home medications -: Monitor blood sugar and treat accordingly * .
[2018-08-22] MEDS ORDERED: Nitroglycerin 4.9 GM Bottle PO PRN (17:07)
[2018-08-22] MEDS ORDERED: Cyclobenzaprine 10 MG TAB PO PRN (17:07)
[2018-08-22] MEDS ORDERED: HumaLOG 300 UNITS/3 ML VIAL SC PRN (17:10)
[2018-08-22] MEDS ORDERED: Dextrose 50% Abboject 50 ML SYRINGE SLOW IVP PRN (17:10)
[2018-08-22] MEDS ORDERED: Dextrose 5% in Water 1,000 ML IV PRN (17:10)
--- NOTE | 2018-08-22 19:51 | EKG ---
Test Reason : Blood Pressure : / mmHG Vent. Rate : 091 BPM Atrial Rate : 091 BPM P-R Int : 182 ms QRS Dur : 156 ms QT Int : 404 ms P-R-T Axes : 005 085 -43 degrees QTc Int : 496 ms Normal sinus rhythm Right bundle branch block Possible Inferior infarct , age undetermined T wave abnormality, consider lateral ischemia Abnormal ECG Confirmed by YESSY HINTON D.O. ([id number]), mapping editor JENNIFER ROBERT ([id number]) on 08/22/2018 7:50:46 PM Referred By: Confirmed By:YESSY HINTON D.O.
[2018-08-22] MEDS: Atorvastatin Calcium 40 MG TAB PO SCH (21:13)
[2018-08-22] MEDS: Zolpidem Tartrate 5 MG TAB PO PRN (21:25)
[2018-08-23 00:20] LABS: Glucose Accucheck Confirmation 704 mg/dl (80-115)
[2018-08-23] MEDS ORDERED: Insulin Glargine 50 UNITS in Pre-Filled Syringe 1 EACH SC SCH (00:30)
[2018-08-23] MEDS ORDERED: HumaLOG 300 UNITS/3 ML VIAL SC SCH ×2 (00:45→18:15)
[2018-08-23] MEDS: HumaLOG 300 UNITS/3 ML VIAL SC PRN ×3 (04:56→13:18)
[2018-08-23] MEDS: Furosemide 40 MG/4 ML VIAL SLOW IVP SCH ×2 (06:16→14:33)
[2018-08-23] MEDS: Ferrous Sulfate 325 MG TAB PO SCH ×2 (08:05→17:09)
[2018-08-23] MEDS: metFORMIN XR 500 MG TAB PO SCH ×2 (08:05→17:09)
[2018-08-23] MEDS: predniSONE 20 MG TAB PO SCH (08:05)
[2018-08-23] MEDS: Enoxaparin Sodium 40 MG/0.4 ML SYRINGE SC SCH (08:06)
[2018-08-23] MEDS: Clopidogrel Bisulfate 75 MG TAB PO SCH (08:06)
[2018-08-23] MEDS: Aspirin 81 mg Enteric Coated Tablet PO SCH (08:06)
[2018-08-23] MEDS: Carvedilol 6.25 MG TAB PO SCH (08:06)
[2018-08-23] MEDS: Fenofibrate Nanocrystallized 145 MG TAB PO SCH (08:07)
[2018-08-23] MEDS: Gabapentin 300 MG CAP PO SCH ×2 (08:07→20:30)
[2018-08-23] MEDS: Hydrochlorothiazide 25 MG TAB PO SCH (08:07)
[2018-08-23] MEDS: Famotidine 20 MG TAB PO SCH ×2 (08:09→20:30)
[2018-08-23 09:39] LABS: Hemoglobin 8.3 g/dL (14.0-18.0); Mean Corpuscular Hemoglobin 23.7 pg (27.0-31.0)
[2018-08-23] MEDS ORDERED: Clopidogrel Bisulfate 75 MG TAB ONE ×3 (10:04)
[2018-08-23] MEDS: Lisinopril 20 MG TAB PO SCH (10:18)
--- NOTE | 2018-08-23 10:43 | PDOC.CTH ---
Cardiology Progress Note - Subjective c/o upset stomach right now. No overnight events. Good diuresis. - Objective Vital Signs Temp Pulse Resp BP Pulse Ox 08/23/18 10:03 98/51 L 08/23/18 07:58 97.7 F 95 20 127/58 L 93 L 08/23/18 07:06 91 20 90 L 08/23/18 04:35 97.6 F 74 20 116/61 98 Weight 235 lb 08/22/18 08/23/18 08/24/18 05:59 06:59 06:59 Intake Total Output Total Balance - Physical Examination General/Neuro: alert & oriented x3 Neck: no JVD present Lungs: CTA Heart: RRR Abdomen: NT/ND Extremities: other: (no edema) - Telemetry Telemetry Rhythm: SR - Labs Result Diagrams: 08/23/18 08:34 08/21/18 05:12 Troponin/CKMB CK-MB (CK-2) 2.6 ng/mL (0-6.6) 08/20/18 09:06 Troponin I 0.142 ng/mL (< 0.028) H 08/20/18 22:03 - Assessment/Plan 1. Acute on chronic systolic CHF (EF 35-40%) 2. ICMO 3. CAD s/p CABG 4. s/p PCI 5. HTN 6. DM-II Patient with good diuresis, but now c/o stomach pain. Says he gets at times. PPI and Zofran PRN. Check labs. He complains that he thinks his lasix doesn't work as well anymore. Could changed to Demadex or Bumex once IV diuresis changed to po.
[2018-08-23 11:11] LABS: Anion Gap 14 mmol/L (10-20); BUN (Urea Nitrogen) 25 mg/dL (8.4-25.7); Calc. Creatinine Clearance 81 mL/min (70-130); Calcium 8.9 mg/dL (7.8-10.44); Carbon Dioxide 27 mmol/L (23-31); Chloride 99 mmol/L (98-107); Estimated GFR-MDRD 51; Glucose 428 mg/dL (80-115); Potassium 3.9 mmol/L (3.5-5.1); Sodium 136 mmol/L (136-145)
[2018-08-23 11:39] LABS: #Eosinphils 0.2 thou/uL (0.0-0.7); #Lymphocytes 1.7 thou/uL (1.20-3.40); #Monocytes 0.8 thou/uL (0.11-0.59); #Neutrophils 8.5 thou/uL (1.40-6.50); %Basophils 0.3 % (0.0-1.0); %Eosinophils 1.9 % (0.0-10.0); %Lymphocytes 14.7 % (21.0-51.0); %Monocytes 7.1 % (0.0-10.0); Hypochromia SLIGHT = 6-15 cells (100X) (0-5/hpf); MDiff Complete? YES; Mean Corpuscular HGB CONC 29.6 g/dL (32.0-36.0); Mean Platelet Volume 7.8 fL (7.4-10.4); Platelet Count 319 thou/uL (130-400); Platelet Morphology Comment Appears Adequate; Polychromasia SLIGHT = 2-3 cells (100X) (0-2/hpf); RBC Distribution Width 16.9 % (11.5-14.5); Target Cells SLIGHT = 2-5 cells (100X) (0-1/hpf); Tear Drops SLIGHT = 2-5 cells (100X) (0-1/hpf); White Blood Cell (WBC) Count 11.2 thou/uL (4.8-10.8)
--- NOTE | 2018-08-23 12:34 | PDOC.PN ---
- Subjective Encounter Start Date: 08/23/18 Encounter Start Time: 12:32 Patient seen and examined. No new complaints. No overnight events. sob is better. - Objective MAR Reviewed: Yes Vital Signs & Weight: Vital Signs (12 hours) Temp Pulse Resp BP BP Pulse Ox 08/23/18 11:50 73 18 98/50 L 99 08/23/18 11:14 83 20 93 L 08/23/18 10:03 98/51 L 08/23/18 08:00 93 L 08/23/18 07:58 97.7 F 95 20 127/58 L 93 L 08/23/18 07:06 91 20 90 L 08/23/18 04:35 97.6 F 74 20 116/61 98 Weight Weight 235 lb Most Recent Monitor Data Heart Rate from ECG 87 NIBP 133/59 NIBP BP-Mean 83 Respiration from ECG 19 SpO2 91 I&O: 08/22/18 08/23/18 08/24/18 05:59 06:59 06:59 Intake Total Output Total Balance Result Diagrams: 08/23/18 08:34 08/23/18 10:42 Additional Labs: Accuchecks 08/23/18 08/23/18 07:30 04:32 POC Glucose 302 H 426 H Phys Exam - Physical Examination Constitutional: NAD HEENT: sclera anicteric Neck: supple Respiratory: no wheezing Cardiovascular: no significant murmur Gastrointestinal: soft Musculoskeletal: no edema Neurological: non-focal, moves all 4 limbs Psychiatric: normal affect, A&O x 3 Skin: no rash Dx/Plan (1) Diabetes mellitus Code(s): E11.9 - TYPE 2 DIABETES MELLITUS WITHOUT COMPLICATIONS Status: Acute (2) Congestive heart failure Code(s): I50.9 - HEART FAILURE, UNSPECIFIED Status: Acute (3) Coronary artery disease Code(s): I25.10 - ATHSCL HEART DISEASE OF [place] CORONARY ARTERY W/O ANG PCTRS Status: Acute (4) Hypertension Code(s): I10 - ESSENTIAL (PRIMARY) HYPERTENSION Status: Acute (5) Shortness of breath Code(s): R06.02 - SHORTNESS OF BREATH Status: Acute (6) Sleep apnea Code(s): G47.30 - SLEEP APNEA, UNSPECIFIED Status: Acute - Plan cont current plan of care, plan discussed w/ family, DVT proph w/lovenox * . will add Lantus 40 units sq bid. Monitor glucose level. AM labs. continue diuresis monitor renal function. Appreciate cardiology input.
--- NOTE | 2018-08-23 13:04 | PRG ---
DATE OF SERVICE: 08/23/2018 SUBJECTIVE: This morning, he is doing better. Less shortness of breath, cough. No wheezing. OBJECTIVE: VITAL SIGNS: Saturations are 99% on 3 L, respiratory rate 18, temperature is 97, and blood pressure 98/50. CHEST: No wheezing or crackles. CARDIAC: Normal S1 and S2. No gallops. ABDOMEN: No masses. LABORATORY DATA: White count is unremarkable at 11,000. Creatinine 1.3. Glucose is elevated to 704. IMPRESSION: 1. Azotemia. 2. Morbid obesity. 3. Diabetes. 4. Respiratory failure. 5. Pleural effusion. 6. Congestive heart failure. 7. Sleep apnea. Decrease his prednisone 20 a day. Continue PT eventually. Follow up with Dr. Waters. Job ID: [id number]
[2018-08-23] MEDS ORDERED: Insulin Glargine 25 UNITS in Pre-Filled Syringe 1 EACH SC SCH (13:30)
[2018-08-23] MEDS ORDERED: Furosemide 20 MG/2 ML VIAL SLOW IVP SCH (14:45)
[2018-08-23 17:56] LABS: Glucose Accucheck Confirmation 617 mg/dl (80-115)
[2018-08-23] MEDS: Zolpidem Tartrate 5 MG TAB PO PRN (20:30)
[2018-08-23] MEDS: Atorvastatin Calcium 40 MG TAB PO SCH (20:30)
[2018-08-23] MEDS: Insulin Glargine 40 UNITS in Pre-Filled Syringe 1 EACH SC SCH (20:31)
[2018-08-23] MEDS: HYDROcodone/Acetaminophen 5/325 mg Tablet PO PRN (20:34)
[2018-08-24] MEDS: Furosemide 40 MG/4 ML VIAL SLOW IVP SCH ×2 (05:38→14:03)
[2018-08-24 06:09] LABS: #Eosinphils 0.1 thou/uL (0.0-0.7); #Lymphocytes 1.7 thou/uL (1.20-3.40); #Monocytes 0.6 thou/uL (0.11-0.59); #Neutrophils 7.8 thou/uL (1.40-6.50); %Basophils 0.2 % (0.0-1.0); %Eosinophils 1.3 % (0.0-10.0); %Lymphocytes 16.4 % (21.0-51.0); %Neutrophils 76.1 % (42.0-75.0); Hemoglobin 8.1 g/dL (14.0-18.0); Mean Corpuscular HGB CONC 27.9 g/dL (32.0-36.0); Mean Corpuscular Hemoglobin 22.6 pg (27.0-31.0); Mean Platelet Volume 8.1 fL (7.4-10.4); Platelet Count 307 thou/uL (130-400); RBC Distribution Width 16.3 % (11.5-14.5); Red Blood Cell (RBC) Count 3.59 mill/uL (4.70-6.10); White Blood Cell (WBC) Count 10.3 thou/uL (4.8-10.8)
[2018-08-24 06:17] LABS: Anion Gap 11 mmol/L (10-20); BUN (Urea Nitrogen) 24 mg/dL (8.4-25.7); Calc. Creatinine Clearance 99 mL/min (70-130); Calcium 8.9 mg/dL (7.8-10.44); Carbon Dioxide 31 mmol/L (23-31); Chloride 99 mmol/L (98-107); Estimated GFR-MDRD 64; Glucose 221 mg/dL (80-115); Potassium 3.9 mmol/L (3.5-5.1); Sodium 137 mmol/L (136-145)
[2018-08-24] MEDS: HYDROcodone/Acetaminophen 10/325 mg Tablet PO PRN (06:22)
[2018-08-24 07:43] VITALS: TEMP 97.8
[2018-08-24] MEDS ORDERED: predniSONE 20 MG TAB PO SCH (08:00)
[2018-08-24] MEDS: Enoxaparin Sodium 40 MG/0.4 ML SYRINGE SC SCH (08:57)
[2018-08-24] MEDS: metFORMIN XR 500 MG TAB PO SCH ×2 (08:58→16:45)
[2018-08-24] MEDS: Fenofibrate Nanocrystallized 145 MG TAB PO SCH (08:58)
[2018-08-24] MEDS: Clopidogrel Bisulfate 75 MG TAB PO SCH (08:59)
[2018-08-24] MEDS: Ferrous Sulfate 325 MG TAB PO SCH ×2 (08:59→16:45)
[2018-08-24] MEDS: Gabapentin 300 MG CAP PO SCH (08:59)
[2018-08-24] MEDS: Aspirin 81 mg Enteric Coated Tablet PO SCH (08:59)
[2018-08-24] MEDS: Insulin Glargine 40 UNITS in Pre-Filled Syringe 1 EACH SC SCH (09:00)
[2018-08-24] MEDS: Famotidine 20 MG TAB PO SCH (09:46)
[2018-08-24] MEDS: Carvedilol 6.25 MG TAB PO SCH (10:05)
[2018-08-24] MEDS: HumaLOG 300 UNITS/3 ML VIAL SC PRN ×2 (10:08→13:04)
[2018-08-24] MEDS: Hydrochlorothiazide 25 MG TAB PO SCH (10:45)
[2018-08-24] MEDS: Lisinopril 20 MG TAB PO SCH (10:45)
[2018-08-24] MEDS: Liraglutide [Victoza 2-Pak] 1.8 MG SC SCH (13:25)
--- NOTE | 2018-08-24 14:53 | PDOC.CTH ---
Cardiology Progress Note - Subjective No complaints. Walked 20+ yards in [place] today. Denies any CP. Breathing stable. - Objective Vital Signs Temp Pulse Resp BP BP Pulse Ox 08/24/18 12:50 97.8 F 83 20 108/52 L 95 08/24/18 09:52 84 20 90 L 08/24/18 07:38 97.8 F 78 18 95 08/24/18 06:31 88 20 93 L 08/24/18 04:00 97.6 F 89 20 102/52 L 95 Weight 237 lb 12.8 oz 08/23/18 08/24/18 08/25/18 06:59 06:59 06:59 Intake Total 1200 Output Total 2800 Balance -1600 - Physical Examination General/Neuro: alert & oriented x3 Neck: no JVD present Lungs: CTA Heart: RRR Abdomen: NT/ND Extremities: other: (no edema) - Telemetry Telemetry Rhythm: SR - Labs Result Diagrams: 08/24/18 05:35 08/24/18 05:35 Troponin/CKMB CK-MB (CK-2) 2.6 ng/mL (0-6.6) 08/20/18 09:06 Troponin I 0.142 ng/mL (< 0.028) H 08/20/18 22:03 - Assessment/Plan 1. Acute on chronic systolic CHF (EF 35-40%) 2. ICMO 3. CAD s/p CABG 4. s/p PCI 5. HTN 6. DM-II Stable CV status. Nurse reports lisinopril held due to hypotension. Will start 5mg once daily. Euvolemic. Really ok for discharge from my standpoint at any time.
[2018-08-24] MEDS: HYDROcodone/Acetaminophen 5/325 mg Tablet PO PRN (15:39)
[2018-08-24 16:24] VITALS: BP 98/62
[2018-08-24] MEDS ORDERED: Temazepam 15 MG CAP PO SCH (21:00)
[2018-08-25] MEDS ORDERED: Lisinopril 5 MG TAB PO SCH (09:00)
--- NOTE | 2018-08-26 08:27 | PQF ---
SAP Morphologist Crystal Reports Winform ViewerCONSTANTINEVALGERRY LANIER DONNA Morris ROBLES [id number] TIFFANIE HANDLEY [id number] CLINICAL DOCUMENTATION CLARIFICATION FORM: POST DISCHARGE Addendum to original discharge summary date: ____ Late entry note date: I am the PCP, not the admitting physician. Please redirect to Dr.Rohan Box, who did the admission._ MD [place] 08/27/18 11: 32 am__ DATE: 08/26/2018 ATTN: Dr. Perdomo Please exercise your independent, professional judgment in responding to the clarification form. Clinical indicators are provided on the bottom of this form for your review Please check appropriate box(s) to clarify if the following diagnosis has been ruled in or ruled out: (CDI/Coding list diagnosis here) Could you please further clarify if NSTEMI is ruled in or ruled out. [ ] Ruled in diagnosis [ ] Continue to treat [ ] Resolved [ ] Ruled out diagnosis [ ] Cannot rule out diagnosis [ ] Other diagnosis [ ] Unable to determine For continuity of documentation, please document condition throughout progress notes and discharge summary. Thank You. CLINICAL INDICATORS - SIGNS / SYMPTOMS / LABS H and P by Dr. Perdomo - pt was admitted due to chest tightness and SOB" H and P by Dr. Perdomo - "Impression : Non-ST elevation MN" pg 2. PN by Dr. Waters 08/21 - "Troponin 0.142 which is downtrending confortabley. Laboratory 08/20/18 - troponin 0.129 ng/ml Holter results by Dr. Kaiser 08/22 - Possible Inferior Infarct", T wave abnormality consider lateral ischemia". RISK FACTORS: History CABG- H&P History MN -H&P CAD -H&P Hypertension -H&P DM - H&P CHF- H&P TREATMENTS: aspirin 81mg PO daily - AUG lovenox 100mg Route STK - AUG Carvedilol 12.5mg PO -AUG Cardiology Monitoring -PN Holter Monitor 08/21 & 08/22 - Imaging (This form is maintained as a part of the permanent medical record) 2014 [employer]. All Rights Reserved [email or web address] [not provided] MTDD
--- NOTE | 2018-08-27 23:40 | PQF ---
SAP Tail Ripper Crystal Reports Winform BarreraGERRYYana BIANCHI ABIODUN [id number] ERHOLD- ERHOLD [id number] CLINICAL DOCUMENTATION CLARIFICATION FORM: POST DISCHARGE Addendum to original discharge summary date: 08/31/2018 Late entry note date: 08/31/2018 DATE: 08/27/2018 ATTN:Dr. Abiodun Bianchi Please exercise your independent, professional judgment in responding to the clarification form. Clinical indicators are provided on the bottom of this form for your review Please check appropriate box(s) to clarify if the following diagnosis has been ruled in or ruled out: NSTEMI given troponin of 0.13 (CDI/Coding list diagnosis here) Could you please further clarify the patient condition if NSTEMI is ruled in or ruled out? [ x ] Ruled in diagnosis [ x ] Continue to treat [ ] Resolved [ ] Ruled out diagnosis [ ] Cannot rule out diagnosis [ ] Other diagnosis [ ] Unable to determine In addition, please specify: Present on Admission (POA): [ x ] Yes [ ] No [ ] Unable to determine For continuity of documentation, please document condition throughout progress notes and discharge summary. Thank You. CLINICAL INDICATORS - H and P 08/20/18 pg.1-Patient admitted with chest tightness and SOB H and P 08/20/18 pg.2- chemistry panel shows troponin 0.13 and a brain natriuretic peptide of 833 H and P 08/20/18 pg.2- assessment: Non- ST elevation myocardial" H and P pg.[address] Bianchi- "Plan: will start patient on Brilinta and full dose levenox to treat as an NSTEMI as per consult: DR. Valladares 08/21 pg.4- "w ill discontinue full anticoagulation due to his GLENIS Holter result by Dr Javier 08/22/18- "possible inferior infarct, T wave abnormality consider lateral ischemia" RISK FACTORS Hx of CABG- H and P Hx of AR-H and P CAD-H and P SAP Tail Ripper Crystal Reports Winform ViewerDM-H and P HTN-H and P CHF-H and P TREATMENTS aspirin 81mg POdaily- MAR levenox 100mg Route STK- MAR Carvedilol-- MAR Holters monitoring (This form is maintained as a part of the permanent medical record) 2014 [employer] All Rights Reserved [email or web address] [not provided] MTDD
== END 2018-08-24 19:32 | disposition home or self-care (01) | DRG 280 ==
LOC: ERS 08:40 → ERHOLD 11:25 → IMCU/EMU 16:13 → 2NO 08-22 09:56
PROVIDERS: ADMIT Internal Medicine; ATTEND Internal Medicine
DX: I13.0 Hypertensive heart and chronic kidney disease with heart failure and stage 1 through stage 4 chronic kidney disease, or unspecified chronic kidney disease (principal); J96.01 Acute respiratory failure with hypoxia; I21.4 Non-ST elevation (NSTEMI) myocardial infarction; I50.23 Acute on chronic systolic (congestive) heart failure; J44.1 Chronic obstructive pulmonary disease with (acute) exacerbation; Z87.891 Personal history of nicotine dependence; I25.10 Atherosclerotic heart disease of native coronary artery without angina pectoris; Z95.5 Presence of coronary angioplasty implant and graft; Z95.1 Presence of aortocoronary bypass graft; Z99.89 Dependence on other enabling machines and devices; Z88.5 Allergy status to narcotic agent; Z88.8 Allergy status to other drugs, medicaments and biological substances; Z88.1 Allergy status to other antibiotic agents; R59.1 Generalized enlarged lymph nodes; E66.01 Morbid (severe) obesity due to excess calories; G47.33 Obstructive sleep apnea (adult) (pediatric); I25.2 Old myocardial infarction; Z96.641 Presence of right artificial hip joint; D50.9 Iron deficiency anemia, unspecified; K21.9 Gastro-esophageal reflux disease without esophagitis; G25.81 Restless legs syndrome; Z86.73 Personal history of transient ischemic attack (TIA), and cerebral infarction without residual deficits; E11.43 Type 2 diabetes mellitus with diabetic autonomic (poly)neuropathy; K31.84 Gastroparesis; N18.2 Chronic kidney disease, stage 2 (mild); I95.9 Hypotension, unspecified; M19.90 Unspecified osteoarthritis, unspecified site; E78.00 Pure hypercholesterolemia, unspecified; Z87.01 Personal history of pneumonia (recurrent); Z68.36 Body mass index [BMI] 36.0-36.9, adult; Z79.899 Other long term (current) drug therapy; Z79.82 Long term (current) use of aspirin; Z79.4 Long term (current) use of insulin; Z79.02 Long term (current) use of antithrombotics/antiplatelets; G89.29 Other chronic pain; Z79.52 Long term (current) use of systemic steroids; I25.5 Ischemic cardiomyopathy; E11.22 Type 2 diabetes mellitus with diabetic chronic kidney disease; Z96.653 Presence of artificial knee joint, bilateral
CPT/HCPCS: 36415; 36416; 71045; 71275; 80048; 80053; 82553; 82728; 83540; 83550; 83880; 84484; 85025; 90471; 90686; 90732; 93005; 93010; 93306; 93798; 94640; 96372; 96374; G0008; G0009; J0456; J0696; J1650; J1825; J1940; J2920; J7050; J7620; Q9967